=== PATIENT | male | born 1940 | race Caucasian/White ===

== ENCOUNTER 2017-02-07 19:58 | Inpatient (IN) | payer MEDICARE, OTHER ==
--- OUTSIDE RECORDS SUMMARY | 2017-02-07 20:01 | XMS | Clinical Summary ---
:1940 Author Organization [facility] Address [address] [place] [address] Phone Care Team Providers Name Role Phone , Primary Care Provider Unavailable Allergies No Known Allergies Current Medications Prescription Sig. Disp. Refills Start Date End Date Status simvastatin (ZOCOR) 80 MG Take 80 mg by Active tablet mouth nightly. metoprolol (TOPROL-XL) 25 Take 25 mg by Active MG 24 hr tablet mouth daily. lisinopril Take 2.5 mg by Active (PRINIVIL,ZESTRIL) 2.5 MG mouth daily. tablet clopidogrel (PLAVIX) 75 mg Take 75 mg by Active tablet mouth daily. finasteride (PROSCAR) 5 mg Take 5 mg by Active tablet mouth daily. ezetimibe (ZETIA) 10 mg Take 10 mg by Active tablet mouth daily. niacin 500 MG tablet Take 500 mg by Active mouth daily with breakfast. aspirin 325 MG tablet Take 325 mg by Active mouth daily. multivitamin per tablet Take 1 tablet by Active mouth daily. coenzyme Q10 100 mg capsule Take 100 mg by Active mouth daily. ascorbic acid, vitamin C, Take 1,000 mg by Active (VITAMIN C) 1000 MG tablet mouth daily. cholecalciferol, vitamin Take 1,000 Units Active D3, 1,000 unit capsule by mouth daily. b complex vitamins tablet Take 1 tablet by Active mouth daily. milk thistle 175 mg tablet Take 175 mg by Active mouth daily. omega-3 fatty acids-fish Take 2 g by mouth Active oil 340-1,000 mg Cap per 2 (two) times capsule daily. diphenhydrAMINE (BENADRYL) Take 25 mg by Active 25 mg tablet mouth every night as needed for Sleep. Active Problems Not on file Encounters Date Type Specialty Care Team Description 02/01/2017 - Emergency Emergency Medicine [place], Fever and chills 02/02/2017 Rita Gary MD (Primary Dx);Cancer (HCC);Cough 01/15/2017 Telephone Radiology Leanna Friend RN 01/14/2017 Hospital Encounter Radiology Blayne Royal Malignant neoplasm MD Bharath of prostate ([facility]) 01/14/2017 Scanned Document 01/13/2017 Telephone Radiology Leanna Friend RN 01/07/2017 Hospital Encounter Radiology Blayne Royal Malignant neoplasm MD Bharath of prostate ([facility]) 01/07/2017 Hospital Encounter Radiology Blayne Royal Malignant neoplasm MD Bharath of prostate ([facility]) 01/03/2017 Telephone Radiology Caryn Gilbert RN 01/01/2017 Outside Orders Blayne Royal Malignant neoplasm MD Bharath of prostate ([facility]) (Primary Dx) from Last 3 Months Social History Tobacco Use Types Packs/Day Years Used Date Former Smoker 1 15 Quit: 01/03/1975 Smokeless Tobacco: Former User Quit: 01/03/1975 Tobacco Cessation:Counseling Given: Yes Alcohol Use Drinks/Week oz/Week Comments No Sex Assigned at Date Recorded Not on file Last Filed Vital Signs Vital Sign Reading Time Taken Blood Pressure 124/78 02/02/2017 1:54 AM CDT Pulse 86 02/02/2017 1:54 AM CDT Temperature 37.1 C (98.7 F) 02/02/2017 1:54 AM CDT Respiratory Rate 16 02/02/2017 1:54 AM CDT Oxygen Saturation 100% 02/02/2017 1:54 AM CDT Inhaled Oxygen Concentration - - Weight 87.1 kg (192 lb) 02/01/2017 9:49 PM CDT Height 165.1 cm (5' 5") 02/01/2017 9:49 PM CDT Body Mass Index 31.95 02/01/2017 9:49 PM CDT Plan of Treatment Not on file Results Rapid Influenza A&B Screen (02/01/2017 11:59 PM) Component Value Ref Range Rapid Influenza A Antigen Negative Negative Rapid influenza B Antigen Negative Negative Specimen Performing Laboratory Nasal - Nasopharyngeal Swab [facility] [address] [place] [address] Blood culture (02/01/2017 11:57 PM)Only the most recent of2 resultswithin the time period is included. Component Value Ref Range Result No growth in 5 days Specimen Performing Laboratory Blood - Arm, Right [facility] [address] [place] [address] Procalcitonin (02/01/2017 11:50 PM) Component Value Ref Range Procalcitonin 0.06(H) <0.05 ng/mL Specimen Performing Laboratory [facility] [address] [place] [address] Narrative SEPSIS RISK (ng/mL) Low:0.05-0.50 Intermediate: 0.51-2.00 High: >=2.01 CBC with platelet count + automated diff (02/01/2017 11:50 PM) Component Value Ref Range WBC 9.5 4.0 - 10.0 K/L RBC 3.84(L) 4.20 - 5.80 M/L Hemoglobin 11.2(L) 13.0 - 16.8 GM/DL Hematocrit 33.4(L) 40.0 - 50.0 % MCV 87.0 82.0 - 98.0 fL MCH 29.2 27.0 - 33.0 pg MCHC 33.6 32.0 - 36.0 GM/DL RDW 13.4 12.0 - 15.0 % Platelets 206 150 - 430 K/CU MM MPV 7.5 6.5 - 10.5 fL nRBC 0 0 - 0 /100 WBC % Neutros 79 % % Lymphs 11 % % Monos 7 % % Eos 1 % % Baso 2 % # Neutros 7.50 1.80 - 8.00 K/L # Lymphs 1.00(L) 1.48 - 4.50 K/L # Monos 0.70 0.00 - 1.30 K/L # Eos 0.10 0.00 - 0.50 K/L # Baso 0.20 0.00 - 0.20 K/L Specimen Performing Laboratory [facility] [address] [place] [address] Lactic acid, venous, whole blood (02/01/2017 11:50 PM) Component Value Ref Range Lactate, Venous 0.5 0.5 - 2.2 mmol/L Specimen Performing Laboratory [facility] [address] [place] [address] Narrative Effective 09/11/2015: Units/Reference Range Change New: 0.5-2.2 mmol/LPrevious: 5-20 mg/dL CBC with platelet count + automated diff (02/01/2017 11:50 PM) Specimen Performing Laboratory Blood Narrative The following orders were created for panel order CBC with platelet count + automated diff. Procedure Abnormality Status --------- ------ CBC with platelet count ...[[id number]]AbnormalFinal result Please view results for these tests on the individual orders. Comprehensive metabolic panel (02/01/2017 11:50 PM) Component Value Ref Range Protein, Total 6.6 6.0 - 8.5 gm/dL Albumin 3.8 3.5 - 5.0 g/dL Alkaline Phosphatase 87 30 - 115 U/L Total Bilirubin 0.5 0.1 - 1.3 mg/dL Sodium 135 135 - 148 meq/L Potassium 3.9 3.5 - 5.5 meq/L Chloride 103 98 - 106 meq/L CO2 21 20 - 31 meq/L BUN 27(H) 10 - 26 mg/dL Creatinine 1.70(H) 0.50 - 1.20 mg/dL Glucose 127(H) 70 - 110 mg/dL Calcium 8.8 8.5 - 10.5 mg/dL AST 21 5 - 40 U/L ALT 16 6 - 50 U/L EGFR 39Comment:ESTIMATED GFR IS NOT ACCURATE mL/min/1.73 sq m CREATININE CLEARANCE IN PREDICTING GLOMERULAR FILTRATION RATE. ESTIMATED GFR IS NOT APPLICABLE FOR DIALYSIS PATIENTS. Specimen Performing Laboratory Blood [facility] [address] [place] [address] XR chest 2 views (02/01/2017 11:31 PM)Only the most recent of2 resultswithin the time period is included. Specimen Performing Laboratory [facility] Narrative FINAL REPORT Chest, PA and lateral. History: Fever, cough. Comparison: 01/14/2017. IMPRESSION: The heart is within normal limits of size. A right chest port is in place with the distal tip terminating at the cavoatrial junction. No focal consolidation, sizable pleural effusion, or pneumothorax. Right basilar atelectasis is present. Signed: Kevin Thomas MD Report Verified Date/Time:02/01/2017 23:35:25 Reading Location: [facility] B1 [id number] Consult Reading Room Procedure Note Interface, External Ris In - 02/01/2017 11:37 PM CDT FINAL REPORT Chest, PA and lateral. History: Fever, cough. Comparison: 01/14/2017. IMPRESSION: The heart is within normal limits of size. A right chest port is in place with the distal tip terminating at the cavoatrial junction. No focal consolidation, sizable pleural effusion, or pneumothorax. Right basilar atelectasis is present. Signed: Kevin Thomas MD Report Verified Date/Time: 02/01/2017 23:35:25 Reading Location: [facility] C013 Consult Reading Room Urinalysis w/Microscopic + Reflex to Culture - Clear Catch (02/01/2017 11:26 PM) Component Value Ref Range Color, UA Yellow Clarity, UA Clear Specific [place], UA 1.008 1.001 - 1.035 pH, UA 6.0 5.0 - 8.0 Protein, UA Negative Negative Glucose, UA 50 mg/dL(A) Negative Ketones, UA Negative Negative Bilirubin, UA Negative Negative Blood, UA Negative Negative Nitrite, UA Negative Negative Leukocytes, UA Negative Negative Urobilinogen, UA <1.0 0.2 - 1.0 mg/dL RBC, UA 0 /HPF WBC, UA <1 /HPF Mucus Rare Specimen Source Specimen Performing Laboratory Urine - Urine, Clean Catch [facility] [address] [place] [address] IR Port-a-Cath Placement (01/14/2017 10:36 AM) Specimen Performing Laboratory [facility] Narrative FINAL REPORT Ps).07 Exam: Chest port insertion Clinical History: Prostate cancer Consent: Benefits and risks were explained to the patient who gave consent to the procedure. Complication: None immediate. Sedation: The procedure was performed with conscious sedation. Continuous cardiorespiratory monitoring was performed by a registered nurse throughout the procedure.The total sedation time was 26 minutes. Total fluoro time:0.2 minutes Total images 1 Medication: Versed 2 mg IV, fentanyl 100 mcg IV, Ancef 1 gram IV Procedure: Sterile barrier technique was followed including cap, mask, sterile gown, sterile gloves, sterile sheet, hand hygiene and 2% chlorhexidine for cutaneous antisepsis.The right chest and neck were prepped and draped in usual sterile fashion. 2% lidocaine was used as local anesthetic. The right internal jugular vein, which was patent, was accessed under ultrasound guidance.A hardcopy of the ultrasound image was obtained.Linear incision was made in the right upper chest followed by creation of a subcutaneous pocket. It was irrigated with antibiotic solution. A subcutaneous tunnel was created by blunt dissection. The chest port catheter was pass through the subcutaneous tunnel and advanced under fluoroscopic guidance to the caval atrial junction. It was cut to appropriate length and connected to the reservoir. The reservoir was placed within the subcutaneous pocket and anchored with 2-0 Prolene.It flushed and aspirated easily and was heparinized. The incision was closed using 3-0 Vicryl in subcuticular fashion. The patient tolerated the procedure well without any adverse reactions. She left the department in stable condition. Impression: Right internal jugular power injectable chest port insertion as described. An access needle was left within the reservoir for immediate access per request by the ordering service. The tip of the catheterterminates at the cavoatrial junction. Signed: Alex Merchant MD Report Verified Date/Time:01/14/2017 17:52:51 Reading Location: [facility] Radiology Reading Room Procedure Note Interface, External Ris In - 01/14/2017 5:54 PM CDT FINAL REPORT Ps).07 Exam: Chest port insertion Clinical History: Prostate cancer Consent: Benefits and risks were explained to the patient who gave consent to the procedure. Complication: None immediate. Sedation: The procedure was performed with conscious sedation. Continuous cardiorespiratory monitoring was performed by a registered nurse throughout the procedure. The total sedation time was 26 minutes. Total fluoro time: 0.2 minutes Total images 1 Medication: Versed 2 mg IV, fentanyl 100 mcg IV, Ancef 1 gram IV Procedure: Sterile barrier technique was followed including cap, mask, sterile gown, sterile gloves, sterile sheet, hand hygiene and 2% chlorhexidine for cutaneous antisepsis. The right chest and neck were prepped and draped in usual sterile fashion. 2% lidocaine was used as local anesthetic. The right internal jugular vein, which was patent, was accessed under ultrasound guidance. A hardcopy of the ultrasound image was obtained. Linear incision was made in the right upper chest followed by creation of a subcutaneous pocket. It was irrigated with antibiotic solution. A subcutaneous tunnel was created by blunt dissection. The chest port catheter was pass through the subcutaneous tunnel and advanced under fluoroscopic guidance to the caval atrial junction. It was cut to appropriate length and connected to the reservoir. The reservoir was placed within the subcutaneous pocket and anchored with 2-0 Prolene. It flushed and aspirated easily and was heparinized. The incision was closed using 3-0 Vicryl in subcuticular fashion. The patient tolerated the procedure well without any adverse reactions. She left the department in stable condition. Impression: Right internal jugular power injectable chest port insertion as described. An access needle was left within the reservoir for immediate access per request by the ordering service. The tip of the catheter terminates at the cavoatrial junction. Signed: Alex Merchant MD Report Verified Date/Time: 01/14/2017 17:52:51 Reading Location: [facility] Radiology Reading Room /aPTT (01/14/2017 8:35 AM) Component Value Ref Range Protime 14.1 11.8 - 14.4 seconds INR 1.1(L) 1.2 - 1.5 PTT 31.4 23.2 - 36.1 seconds Specimen Performing Laboratory Blood - Arm, [facility] [address] [place] [address] Narrative RECOMMENDED COUMADIN/WARFARIN INR THERAPY RANGES STANDARD DOSE: 2.0 - 3.0 Includes: PROPHYLAXIS for venous thrombosis, systemic embolization; TREATMENT for venous thrombosis and/or pulmonary embolus. HIGH RISK: Target INR is 2.5-3.5 for patients with mechanical heart valves. Platelet count (01/14/2017 8:35 AM) Component Value Ref Range Platelets 118(L) 150 - 430 K/CU MM Specimen Performing Laboratory Blood - Arm, [facility] [address] [place] [address] CT chest without IV contrast (01/07/2017 5:30 PM) Specimen Performing Laboratory [facility] Narrative FINAL REPORT CT, CHEST, WITHOUT CONTRAST, CT, ABDOMEN \\T\\ PELVIS, WITHOUT IV CONTRAST INDICATION: Malignant neoplasm of prostate COMPARISON: None TECHNIQUE: Noncontrast chest, abdomen and pelvis CT.Coronal and sagittal reformatted images obtained. Oral contrast was administered. DOSE REDUCTION: Dose modulation, iterative reconstruction, and/or weight-based adjustment of the mA/kV was utilized to reduce the radiation dose to as low as reasonably achievable. NOTE:Absence of intravenous contrast decreases sensitivity for focal lesions and vascular pathology. FINDINGS: Chest: Lungs and pleura: No focal airspace disease. 6 mm pulmonary nodule in the right upper lobe medially. 7 mm nodule near the right cardiophrenic angle. No effusion or pneumothorax. Central airways: Patent. Adenopathy: None. Heart and pericardium: Normal cardiac size. Calcified coronary artery disease is present. Great vessels: Normal calibers. Regional skeleton: No acute abnormalities. Abdomen/Pelvis: Liver: Low-attenuation 13 mm cystic lesion in the right lobe. Perihepatic versus subhepatic fluid collection measures 3.3 x 5.7 cm. Gallbladder and biliary tree: No ductal dilation or stones. Pancreas: No acute findings. Spleen: No acute findings Adrenal Glands: No acute findings. Kidneys and ureters: No obstructing stone. Prior nephrectomy on the right. Exophytic cystic changes on the left. The largest arising from the interpolar region measures 3.5 cm transverse. Bladder and reproductive organs: Unremarkable urinary bladder. Prostate size is within normal limits. Radiotherapy seeds are present. Stomach and Duodenum: No significant findings. Small and large intestine: Normal calibers. No bowel wall thickening. Distal diverticular disease without associated inflammatory signs. Appendix: Normal. Major vascular structures: Normal aortic caliber. Peritoneum and retroperitoneum: No peritoneal, retroperitoneal or iliac chain adenopathy. Skeleton: No blastic or lytic osseous lesions. Modic changes noted at multiple lumbar endplates. Additional findings: None. IMPRESSION: Limited noncontrast evaluation. Small volume perihepatic fluid may represent hemorrhage from recent intervention/bypass. Correlation recommended. Prior right nephrectomy. Normal prostate size with radiotherapy seeds. Pulmonary nodules, the larger of which measures 7 mm. The Fleischner Society guidelines for followup of an incidentally detected 6 to 8 mm pulmonary nodule are as follows:LOW RISK patient (minimal or absent history of smoking and other known risk factors): follow-up CT in 16-12 months; then consider follow-up at 18-24 months. HIGH RISK patient (history of smoking or other risk factors):follow-up CT at 6-12 months, then again at 18-24 months if no change. Signed: JR Blount Robert MD Report Verified Date/Time:01/07/2017 20:41:11 Reading Location: [address] Reading Room Procedure Note Interface, External Ris In - 01/07/2017 8:43 PM CDT FINAL REPORT CT, CHEST, WITHOUT CONTRAST, CT, ABDOMEN \\T\\ PELVIS, WITHOUT IV CONTRAST INDICATION: Malignant neoplasm of prostate COMPARISON: None TECHNIQUE: Noncontrast chest, abdomen and pelvis CT. Coronal and sagittal reformatted images obtained. Oral contrast was administered. DOSE REDUCTION: Dose modulation, iterative reconstruction, and/or weight-based adjustment of the mA/kV was utilized to reduce the radiation dose to as low as reasonably achievable. NOTE: Absence of intravenous contrast decreases sensitivity for focal lesions and vascular pathology. FINDINGS: Chest: Lungs and pleura: No focal airspace disease. 6 mm pulmonary nodule in the right upper lobe medially. 7 mm nodule near the right cardiophrenic angle. No effusion or pneumothorax. Central airways: Patent. Adenopathy: None. Heart and pericardium: Normal cardiac size. Calcified coronary artery disease is present. Great vessels: Normal calibers. Regional skeleton: No acute abnormalities. Abdomen/Pelvis: Liver: Low-attenuation 13 mm cystic lesion in the right lobe. Perihepatic versus subhepatic fluid collection measures 3.3 x 5.7 cm. Gallbladder and biliary tree: No ductal dilation or stones. Pancreas: No acute findings. Spleen: No acute findings Adrenal Glands: No acute findings. Kidneys and ureters: No obstructing stone. Prior nephrectomy on the right. Exophytic cystic changes on the left. The largest arising from the interpolar region measures 3.5 cm transverse. Bladder and reproductive organs: Unremarkable urinary bladder. Prostate size is within normal limits. Radiotherapy seeds are present. Stomach and Duodenum: No significant findings. Small and large intestine: Normal calibers. No bowel wall thickening. Distal diverticular disease without associated inflammatory signs. Appendix: Normal. Major vascular structures: Normal aortic caliber. Peritoneum and retroperitoneum: No peritoneal, retroperitoneal or iliac chain adenopathy. Skeleton: No blastic or lytic osseous lesions. Modic changes noted at multiple lumbar endplates. Additional findings: None. IMPRESSION: Limited noncontrast evaluation. Small volume perihepatic fluid may represent hemorrhage from recent intervention/bypass. Correlation recommended. Prior right nephrectomy. Normal prostate size with radiotherapy seeds. Pulmonary nodules, the larger of which measures 7 mm. The Fleischner Society guidelines for followup of an incidentally detected 6 to 8 mm pulmonary nodule are as follows: LOW RISK patient (minimal or absent history of smoking and other known risk factors): follow-up CT in 16-12 months; then consider follow-up at 18-24 months. HIGH RISK patient (history of smoking or other risk factors):follow-up CT at 6-12 months, then again at 18-24 months if no change. Signed: JR Blount Robert MD Report Verified Date/Time: 01/07/2017 20:41:11 Reading Location: [address] Reading Room abdomen/pelvis without iv contrast (01/07/2017 5:30 PM) Specimen Performing Laboratory [facility] Narrative FINAL REPORT CT, CHEST, WITHOUT CONTRAST, CT, ABDOMEN \\T\\ PELVIS, WITHOUT IV CONTRAST INDICATION: Malignant neoplasm of prostate COMPARISON: None TECHNIQUE: Noncontrast chest, abdomen and pelvis CT.Coronal and sagittal reformatted images obtained. Oral contrast was administered. DOSE REDUCTION: Dose modulation, iterative reconstruction, and/or weight-based adjustment of the mA/kV was utilized to reduce the radiation dose to as low as reasonably achievable. NOTE:Absence of intravenous contrast decreases sensitivity for focal lesions and vascular pathology. FINDINGS: Chest: Lungs and pleura: No focal airspace disease. 6 mm pulmonary nodule in the right upper lobe medially. 7 mm nodule near the right cardiophrenic angle. No effusion or pneumothorax. Central airways: Patent. Adenopathy: None. Heart and pericardium: Normal cardiac size. Calcified coronary artery disease is present. Great vessels: Normal calibers. Regional skeleton: No acute abnormalities. Abdomen/Pelvis: Liver: Low-attenuation 13 mm cystic lesion in the right lobe. Perihepatic versus subhepatic fluid collection measures 3.3 x 5.7 cm. Gallbladder and biliary tree: No ductal dilation or stones. Pancreas: No acute findings. Spleen: No acute findings Adrenal Glands: No acute findings. Kidneys and ureters: No obstructing stone. Prior nephrectomy on the right. Exophytic cystic changes on the left. The largest arising from the interpolar region measures 3.5 cm transverse. Bladder and reproductive organs: Unremarkable urinary bladder. Prostate size is within normal limits. Radiotherapy seeds are present. Stomach and Duodenum: No significant findings. Small and large intestine: Normal calibers. No bowel wall thickening. Distal diverticular disease without associated inflammatory signs. Appendix: Normal. Major vascular structures: Normal aortic caliber. Peritoneum and retroperitoneum: No peritoneal, retroperitoneal or iliac chain adenopathy. Skeleton: No blastic or lytic osseous lesions. Modic changes noted at multiple lumbar endplates. Additional findings: None. IMPRESSION: Limited noncontrast evaluation. Small volume perihepatic fluid may represent hemorrhage from recent intervention/bypass. Correlation recommended. Prior right nephrectomy. Normal prostate size with radiotherapy seeds. Pulmonary nodules, the larger of which measures 7 mm. The Fleischner Society guidelines for followup of an incidentally detected 6 to 8 mm pulmonary nodule are as follows:LOW RISK patient (minimal or absent history of smoking and other known risk factors): follow-up CT in 16-12 months; then consider follow-up at 18-24 months. HIGH RISK patient (history of smoking or other risk factors):follow-up CT at 6-12 months, then again at 18-24 months if no change. Signed: JR Blount Robert MD Report Verified Date/Time:01/07/2017 20:41:11 Reading Location: [address] Reading Room Procedure Note Interface, External Ris In - 01/07/2017 8:43 PM CDT FINAL REPORT CT, CHEST, WITHOUT CONTRAST, CT, ABDOMEN \\T\\ PELVIS, WITHOUT IV CONTRAST INDICATION: Malignant neoplasm of prostate COMPARISON: None TECHNIQUE: Noncontrast chest, abdomen and pelvis CT. Coronal and sagittal reformatted images obtained. Oral contrast was administered. DOSE REDUCTION: Dose modulation, iterative reconstruction, and/or weight-based adjustment of the mA/kV was utilized to reduce the radiation dose to as low as reasonably achievable. NOTE: Absence of intravenous contrast decreases sensitivity for focal lesions and vascular pathology. FINDINGS: Chest: Lungs and pleura: No focal airspace disease. 6 mm pulmonary nodule in the right upper lobe medially. 7 mm nodule near the right cardiophrenic angle. No effusion or pneumothorax. Central airways: Patent. Adenopathy: None. Heart and pericardium: Normal cardiac size. Calcified coronary artery disease is present. Great vessels: Normal calibers. Regional skeleton: No acute abnormalities. Abdomen/Pelvis: Liver: Low-attenuation 13 mm cystic lesion in the right lobe. Perihepatic versus subhepatic fluid collection measures 3.3 x 5.7 cm. Gallbladder and biliary tree: No ductal dilation or stones. Pancreas: No acute findings. Spleen: No acute findings Adrenal Glands: No acute findings. Kidneys and ureters: No obstructing stone. Prior nephrectomy on the right. Exophytic cystic changes on the left. The largest arising from the interpolar region measures 3.5 cm transverse. Bladder and reproductive organs: Unremarkable urinary bladder. Prostate size is within normal limits. Radiotherapy seeds are present. Stomach and Duodenum: No significant findings. Small and large intestine: Normal calibers. No bowel wall thickening. Distal diverticular disease without associated inflammatory signs. Appendix: Normal. Major vascular structures: Normal aortic caliber. Peritoneum and retroperitoneum: No peritoneal, retroperitoneal or iliac chain adenopathy. Skeleton: No blastic or lytic osseous lesions. Modic changes noted at multiple lumbar endplates. Additional findings: None. IMPRESSION: Limited noncontrast evaluation. Small volume perihepatic fluid may represent hemorrhage from recent intervention/bypass. Correlation recommended. Prior right nephrectomy. Normal prostate size with radiotherapy seeds. Pulmonary nodules, the larger of which measures 7 mm. The Fleischner Society guidelines for followup of an incidentally detected 6 to 8 mm pulmonary nodule are as follows: LOW RISK patient (minimal or absent history of smoking and other known risk factors): follow-up CT in 16-12 months; then consider follow-up at 18-24 months. HIGH RISK patient (history of smoking or other risk factors):follow-up CT at 6-12 months, then again at 18-24 months if no change. Signed: JR Mine, Farheen LOVELL Report Verified Date/Time: 01/07/2017 20:41:11 Reading Location: [address] Reading Room -Creatinine (01/07/2017 5:05 PM) Component Value Ref Range POC-Creatinine 1.7(H)Comment:TESTED AT [facility] [address] [facility] 0.6 - 1.3 mg/dL [facility] [address] POC-EGFR 39 mL/min/1.73M2 Specimen Performing Laboratory Blood [facility] [address] [place] [address] from Last 3 Months
[2017-02-07 20:36] LABS: #Eosinphils 0.3 thou/uL (0.0-0.7); #Lymphocytes 0.8 thou/uL (1.20-3.40); #Monocytes 0.7 thou/uL (0.11-0.59); #Neutrophils 5.9 thou/uL (1.40-6.50); %Basophils 0.5 % (0.0-1.0); %Lymphocytes 10.8 % (21.0-51.0); %Monocytes 8.5 % (0.0-10.0); Hematocrit 30.6 % (42.0-52.0); Mean Platelet Volume 7.2 fL (7.4-10.4); Red Blood Cell (RBC) Count 3.55 mill/uL (4.70-6.10); White Blood Cell (WBC) Count 7.7 thou/uL (4.8-10.8)
[2017-02-07] MEDS ORDERED: Acetaminophen 500 MG TAB ONE (20:40)
[2017-02-07 20:42] LABS: PTT 31.6 SEC (22.9-36.1); Prothrombin Time 15.5 SEC (12.0-14.7)
[2017-02-07] MEDS ORDERED: Sodium Chloride 0.9% 100 ML ONE (20:45)
[2017-02-07 20:52] LABS: Lactic Acid - Sepsis 0.5 mmol/L (0.5-2.2)
[2017-02-07 21:01] LABS: Troponin I Less than 0.010 ng/mL (< 0.028)
[2017-02-07 21:04] LABS: ALT (SGPT) 17 U/L (8-55); AST (SGOT) 24 U/L (5-34); Alkaline Phosphatase 84 U/L (40-150); Anion Gap 11 mmol/L (10-20); BUN (Urea Nitrogen) 20 mg/dL (8.4-25.7); Bilirubin, Total 0.4 mg/dL (0.2-1.2); CK (CPK) 126 U/L (30-200); Calc. Creatinine Clearance 0 mL/min (70-130); Calcium 8.6 mg/dL (7.8-10.44); Carbon Dioxide 25 mmol/L (23-31); Chloride 101 mmol/L (98-107); Estimated GFR-MDRD 42; Globulin 3.1 g/dL (2.4-3.5); Lipase 45 U/L (8-78); Protein, Total 6.6 g/dL (5.8-8.1)
[2017-02-07 21:13] LABS: Bilirubin Negative (Negative); Blood, Urine Large (Negative); Glucose, Urine (Dipstick) Negative (Negative); Ketone, Urine Negative (Negative); Nitrite Negative (Negative); Protein, Urine (Dipstick) Trace mg/dL (Neg-Trace); Urobilinogen 0.2 mg/dL (0.2-1.0)
[2017-02-07 21:15] LABS: Bacteria/HPF None Seen HPF (None Seen); Hyaline Casts/LPF 0-3 HYALINE CAST LPF (0-3 Hyaline); RBC/HPF 21-50 HPF (0-3); Squamous Epithelial None Seen HPF (0-3); WBC/HPF 0-3 HPF (0-3)
--- NOTE | 2017-02-07 22:07 | RAD ---
ONE VIEW CHEST: Comparison: 01-17-17 History: Fever. Sepsis. Patient is undergoing chemotherapy. FINDINGS: Stable right Mediport catheter. Normal cardiac silhouette. The pulmonary vessels and hilum are sandrine l. Costophrenic angles are clear. Chronic interstitial changes. No consolidation or mass. No pneumot horax. No osseous abnormalities. IMPRESSION: No acute cardiopulmonary process. POS: [facility]
[2017-02-07] MEDS ORDERED: Acetaminophen 325 MG TAB PO PRN (22:13)
[2017-02-07] MEDS ORDERED: Cefepime 2 GM in Sodium Chloride 0.9% 100 ML IVPB SCH (23:00)
[2017-02-07 23:16] VITALS: BMI 31.1
--- NOTE | 2017-02-07 23:26 | HP ---
PRIMARY CARE PHYSICIAN: Rell Soriano M.D. CHIEF COMPLAINT: Fever. HISTORY OF PRESENT ILLNESS: Mr. Sahni is a pleasant 76-year-old gentleman who was seen at [facility] on 02/07/2017. He has a history of renal cancer. He is receiving chemotherapy at [facility]. His last chemothera py was 2 days ago. He has been advised to go to the emergency room whenever he has fever. He was admitted at [facility] for fevers from 01/17/2017 to 01/18/2017. At that time, it was determined that the likely caus e of fever was not infection. He was discharged home with levofloxacin. He developed hives with le vofloxacin. He reports ongoing fevers whenever he is receiving chemotherapy. He also reports that there was a week when his chemotherapy was kept. He did not have any fevers during that period. He reports cough, which appears to be chronic. He developed a temperature of 103.6 degrees Fahrenhe it on 01/20/2017. Today, he also noticed some blood in the urine. Therefore, he came to the emerge ncy room. He reports that his cough is productive of clear sputum. REVIEW OF SYSTEMS: The following complete review of systems was negative, unless otherwise mentione d in the HPI or below: Constitutional: Weight loss or gain, sense of well-being, ability to conduct usual activities, exer cise tolerance. Skin/Breast: Rash, itching, changes in hair growth or loss, nail changes, breast lumps, tenderness, swelling, nipple discharge. Eyes: Vision, double vision, tearing, blind spots, pain. ENT/Mouth: Headaches (location, time of onset, duration, precipitating factors), vertigo, lighthead edness, injury. Vision, double vision, tearing, blind spots, pain, nose bleeding, colds, obstruction , discharge, dental difficulties, gingival bleeding, dentures, neck stiffness, pain, tenderness, mas ses in thyroid or other areas. Cardiovascular: Precordial pain, substernal distress, palpitations, syncope, dyspnea on exertion, o rthopnea, nocturnal paroxysmal dyspnea, edema, cyanosis, hypertension, heart murmurs, varicosities, phlebitis, claudication. Respiratory: Pain, shortness of breath, wheezing, stridor, cough, hemoptysis, fever or night sweats . Gastrointestinal: Poor appetite, dysphagia, indigestion, abdominal pain, heartburn, eructation, chase sea, vomiting, hematemesis, jaundice, constipation, or diarrhea, abnormal stools (addison-colored, juan c y, bloody, greasy, foul smelling), flatulence, hemorrhoids, recent changes in bowel habits. Genitourinary: Urgency, frequency, dysuria, nocturia, hematuria, polyuria, oliguria, unusual (or ch true in) color of urine, stones, hesitancy, change in size of stream, dribbling, acute retention or incontinence, libido, potency. Musculoskeletal: Pain, swelling, redness or heat of muscles or joints, limitation, of motion, muscu lar weakness, atrophy, cramps. Neurologic/Psychiatric: Convulsions, paralyses, tremor, incoordination, paresthesias, difficulties with memory of speech, sensory or motor disturbances, or muscular coordination (ataxia, tremor), emo tional problems, anxiety, depression, previous psychiatric care, unusual perceptions, hallucinations . Allergy/Immunologic: Skin rash, anemia, bleeding tendency, polydipsia, polyuria, intolerance to hea t or cold. PAST MEDICAL HISTORY: Significant for coronary artery disease, hypertension, dyslipidemia, prostate cancer, renal cell cancer. PAST SURGICAL HISTORY: Significant for right nephrectomy and port placement. SOCIAL HISTORY: The patient denies tobacco use, alcohol use and recreational drug use. FAMILY HISTORY: Significant for breast cancer in his sister. ALLERGIES: LEVOFLOXACIN, which causes hives. HOME MEDICATIONS: Torisel once weekly, leuprolide subcutaneously, Plavix 75 mg daily, lisinopril 2. 5 mg daily, simvastatin 80 mg daily, finasteride 5 mg daily, aspirin 325 mg daily, niacin 1500 mg da oscar, resveratrol 500 mg daily, metoprolol 12.5 mg 2 times a day, Zetia 10 mg daily, glucosamine, mul tivitamins, vitamin D3 of 2000 units daily, vitamin B complex 1 capsule daily and naproxen 220 mg da oscar. PHYSICAL EXAMINATION: GENERAL: On examination, Mr. Sahni is awake and alert, not in acute distress. VITAL SIGNS: Blood pressure is 120/63, pulse is 72, he is breathing at rate of 24 and saturating 99 % on room air. His temperature is currently 99 degrees Fahrenheit, was 101.7 degrees Fahrenheit at 1959 hours today. EYES: No scleral icterus. No conjunctival pallor. ENT: Moist mucosal membranes, no oropharyngeal erythema or exudates. NECK: Supple, nontender, normal range of movement, trachea is midline. RESPIRATORY: Accessory muscles of breathing are not active. Chest wall movements are symmetric carlo aterally. LUNGS: Clear to auscultation without wheeze, rhonchi or crepitations. CARDIOVASCULAR: S1 and S2 are heard, regular. Peripheral pulses palpable. No carotid bruit, no pe ricardial rub. ABDOMEN: Soft, nontender, bowel sounds are heard, no hepatomegaly, no splenomegaly. SKIN: No rashes or subcutaneous nodules. NEUROLOGIC: Cranial nerves II-XII are intact. Deep tendon reflexes are 2+. MUSCULOSKELETAL: Power is 5/5 in all 4 extremities, normal range of movement at all major extremity joints. PSYCHIATRIC: Normal mood, normal affect, patient is oriented to time, place, and person. LABORATORY DATA: Mr. Sahni's labs and investigations were reviewed. I reviewed his electrocardiogra m, which showed normal sinus rhythm, no ST changes to suggest an acute coronary syndrome. I also re viewed his chest x-ray, which does not show any pulmonary infiltrates. He has a normal white count of 7700, elevated neutrophil percentage of 76.2%, normocytic anemia with hemoglobin of 11, normal pl atelet count, INR 1.2, hyponatremia with sodium of 133, elevated creatinine of 1.62, which is around his baseline, normal lactic acid, normal troponin I, slightly elevated BNP of 130.1 and urinalysis that is positive for blood. ASSESSMENT AND PLAN: Mr. Sahni is a pleasant 76-year-old gentleman, who was seen at [facility]. His problem list includes: 1. Sepsis: Mr. Sahni's presentation meets the criteria for systemic inflammatory response syndrome and sepsis, with suspected source of infection in the respiratory tract, given his history of cough that is productive of sputum. He will be admitted to the hospital and continued on vancomycin and c efepime, which has already received. However, it is unclear whether Mr. Sahni has any infection or w hether his symptoms are from chemotherapy or his cancer. I will request Oncology Service opinion re garding this. If it is deemed not to be from an infection, he may be able to go home in a day or so after being stepped down to oral antibiotics. The patient's has also indicated that they will contact MD Armendariz for further guidance. 2. Hyponatremia, mild, rechecked. 3. Coronary artery disease: Continue home medications including aspirin and Plavix. 4. Hypertension: Continue home medications, monitor vital signs and titrate antihypertensives as n eeded. 5. Dyslipidemia: Continue statin. 6. Prostate cancer: Continued leuprolide and finasteride. 7. Deep venous thrombosis prophylaxis with heparin. 8. Code status was discussed. He is FULL CODE. Many thanks for allowing me to participate in your patient's care. Please feel free to contact me w ith any questions or concerns. LEVEL OF RISK: High. LEVEL OF COMPLEXITY: High.
[2017-02-08] MEDS ORDERED: diphenhydrAMINE HCl 25 MG CAP PO SCH (00:30)
[2017-02-08 04:23] LABS: #Eosinphils 0.3 thou/uL (0.0-0.7); #Lymphocytes 0.4 thou/uL (1.20-3.40); #Monocytes 0.2 thou/uL (0.11-0.59); #Neutrophils 2.8 thou/uL (1.40-6.50); %Basophils 0.5 % (0.0-1.0); %Eosinophils 7.7 % (0.0-10.0); %Lymphocytes 11.8 % (21.0-51.0); %Monocytes 4.6 % (0.0-10.0); Hematocrit 32.1 % (42.0-52.0); Mean Platelet Volume 7.1 fL (7.4-10.4); Red Blood Cell (RBC) Count 3.68 mill/uL (4.70-6.10); White Blood Cell (WBC) Count 3.7 thou/uL (4.8-10.8)
[2017-02-08 04:38] LABS: Anion Gap 13 mmol/L (10-20); BUN (Urea Nitrogen) 20 mg/dL (8.4-25.7); Calc. Creatinine Clearance 49 mL/min (70-130); Calcium 8.1 mg/dL (7.8-10.44); Carbon Dioxide 20 mmol/L (23-31); Chloride 110 mmol/L (98-107); Estimated GFR-MDRD 45
[2017-02-08] MEDS ORDERED: [UNRECOGNIZED DRUG - OTHER] IVPB SCH (06:15)
[2017-02-08 07:40] VITALS: BP 118/59
[2017-02-08] MEDS ORDERED: Heparin 5,000 UNITS/ML VIAL SC SCH (09:00)
[2017-02-08] MEDS ORDERED: Niacin 500 MG TAB PO SCH ×4 (09:00)
[2017-02-08] MEDS ORDERED: Multivitamin W/ Minerals 1 TAB PO SCH (09:00)
[2017-02-08] MEDS ORDERED: FLU VACC TS2017-18 (>65YR) 0.5 ML SYRINGE IM ONE (09:00)
[2017-02-08] MEDS ORDERED: Lisinopril 2.5 MG TAB PO SCH (09:00)
[2017-02-08] MEDS ORDERED: Finasteride 5 MG TAB PO SCH (09:00)
[2017-02-08] MEDS ORDERED: Enoxaparin Sodium 40 MG/0.4 ML SYRINGE SC SCH (09:00)
[2017-02-08] MEDS ORDERED: Vancomycin HCl 1 GM in Premix Bag 1 BAG IVPB SCH (09:00)
[2017-02-08] MEDS ORDERED: Aspirin 325 MG TAB PO SCH (09:00)
[2017-02-08] MEDS ORDERED: Clopidogrel Bisulfate 75 MG TAB PO SCH (09:00)
--- NOTE | 2017-02-08 10:29 | CON ---
DATE OF CONSULTATION: 02/08/2017 REASON FOR CONSULTATION: Renal cell carcinoma. HISTORY OF PRESENT ILLNESS: Mr. Sahni is a pleasant 76-year-old gentleman who was diagnosed with prostate cancer and renal cell carcinoma earlier this year. His prostate cancer is been treated with Lupron. He is currently on temsirolimus IV weekly for renal cell carcinoma. Since the beginning of treatment with this medication he has had a fever as high as 103 and a chronic cough. It seems to get worse a couple of days after treatment and then it will ease up; however, his low grade fever has waxed and waned throughout this entire time. He has had 4 treatments of chemo and has been to the emergency room 3 times with admission x2. He has discussed this with his primary oncologists at [facility], who agrees that it is likely drug related. Over the weekend, his fever increased to as high as 103. He had a cough with clear drainage. He presented to the [place] ER and was admitted here for sepsis. CBC on admission shows an ANC of 5.9, his white count was 7.7. He had 76% neutrophils. His urine was negative. He was started on empiric antibiotics. PAST MEDICAL HISTORY: 1. Prostate cancer. 2. Renal cell carcinoma 3. Coronary artery disease. 4. Hypertension. 5. Dyslipidemia. PAST SURGICAL HISTORY: 1. Right nephrectomy. 2. MediPort placement. ALLERGIES: LEVOFLOXACIN. HOME MEDICATIONS: 1. Aspirin 325 daily. 2. Plavix 75 mg daily. 3. Zetia 10 mg daily. 4. Finasteride 5 mg daily. 5. Lisinopril 2.5 mg daily. 6. Toprol XL 12.5 mg b.i.d. 7. Niacin daily. 8. Simvastatin 80 mg daily. FAMILY HISTORY: Significant for breast cancer in a sister. SOCIAL HISTORY: , lives with his spouse. No alcohol, tobacco or illicit drug use. REVIEW OF SYSTEMS: CONSTITUTIONAL: Positive for fever and chills, no night sweats or weight loss. EYES: No blurred or double vision. ENT: No pain, hoarseness, sore throat, or dysphagia. CARDIOVASCULAR: No chest pain, palpitations or syncope. RESPIRATORY: No shortness of breath, dyspnea on exertion or orthopnea. Positive for cough. GASTROINTESTINAL: No nausea, vomiting, diarrhea, constipation or abdominal pain. GENITOURINARY: No dysuria or hematuria. MUSCULOSKELETAL: No joint or back pain. SKIN: No rash or pruritus. HEMATOLOGIC: No bleeding, bruising or clotting. NEUROLOGIC: No weakness, headache, numbness, tingling or seizure activity. PSYCHIATRIC: No anxiety or depression. PHYSICAL EXAMINATION: VITAL SIGNS: Temperature is 98.9, pulse is 86, respiratory rate 20, BP is 118/ 59, he is 97% on room air. GENERAL: Well-developed, well-nourished male in no acute distress. HEENT: Normocephalic, atraumatic. Pupils equal and reactive to light. NECK: Supple without JVD or mass. CARDIOVASCULAR: Regular rate and rhythm. LUNGS: Clear to auscultation. ABDOMEN: Soft, nontender, bowel sounds are positive. EXTREMITIES: No clubbing, cyanosis or edema. SKIN: No rash. HEMATOLOGIC: No petechia or purpura. NEUROLOGICAL: Nonfocal. PSYCHIATRIC: The patient is alert and oriented and answers questions appropriately. PERTINENT LABORATORY AND X-RAYS: Current WBCs are 3.7, hemoglobin 10.9, hematocrit 32.1, platelet count 128,000. He has got 75% neutrophils, 12% lymphocytes, PT is 15.5, INR is 1.2, PTT is 31.6. Sodium is 139, potassium 3.8 , chloride 110, CO2 is 20, BUN is 12, creatinine 1.51, calcium is 8.1, total bilirubin 0.4, AST is 24, ALT is 17, alkaline phosphatase is 84. Creatinine kinase is 126. Troponin is negative. BNP is 130.1. Serum total protein 6.6, albumin 3.5, globulin 3.1, lipase is 45. Urine was negative. ASSESSMENT AND PLAN: 1. Renal cell carcinoma on IV chemo, temsirolimus. 2. Fever, likely drug related. 3. Chronic cough with chemo. DISCUSSION: Again this is likely drug-related fever as this is a known side effect of this medication. This patient has discussed this with his oncologist who also has agreed that this is likely drug related yet they still continue to send him to the emergency room. I suggest that he have a face to face meeting with his oncologist and discuss a better plan of care on how to manage these side effects. He feels fine at this time. He denies any complaints at all. He had an episode of blood in his urine. He felt it was from mechanical pressure as he was felt he was going to be incontinent, so he attempted to stop flow until he reached the bathroom. He is not neutropenic. All of his preliminary blood cultures have been negative and he has been afebrile. I recommend that he be discharged home and to follow up with his oncologist in [place] this week prior to his next treatment on Wednesday. Thank you for the consult. TAMIKO
[2017-02-08] MEDS ORDERED: Cefepime 2 GM in Sodium Chloride 0.9% 100 ML IVPB SCH ×2 (11:00→21:00)
[2017-02-08 11:33] VITALS: TEMP 98.7
--- NOTE | 2017-02-08 14:32 | DIS ---
DATE OF ADMISSION: 02/07/2017 DATE OF DISCHARGE: 02/08/2017 DISCHARGE DIAGNOSES: 1. Febrile episode, secondarily to temsirolimus. 2. Renal cell carcinoma, status post chemotherapy with temsirolimus. 3. Chronic kidney disease, stage 3. 4. Hyponatremia, mild, resolved. 5. Bronchitis/cough, likely secondarily to temsirolimus. 6. Coronary artery disease, chronic and stable. 7. Hypertension, stable. CONSULTATIONS: Medical Oncology Service. PERTINENT LABORATORY AND X-RAY FINDINGS: Sodium ranged between 133-139. Creatinine ranged between 1.51-1.62 with estimated GFR ranging between 42-45. LFTs within normal limits. Lipase 45. Total C K 126. CBC showed a white blood cell count ranging between 3.7-7.7 and hemoglobin ranged between 10 .9-11.0. Blood cultures x2 from 02/07/2017, showed no growth to date. Influenza A and B antigen da radha 02/07/2017 negative. Portable chest x-ray dated 02/07/2017 showed no acute cardiopulmonary proc ess. HOSPITAL COURSE: Patient was admitted to the medical oncology floor after initially presenting with fever in the context of known active chemotherapy secondary to renal cell carcinoma. The patient w as initially managed for potential SIRS/sepsis with IV antibiotic therapy and IV fluids. The patien t was evaluated by Medical Oncology Service with recommendations to discontinue antibiotic coverage as patient's presentation likely secondarily to ongoing chemotherapy exposure. The patient was give n general supportive measures and overall remained clinically stable throughout the hospital course. Chest imaging was unrevealing and blood cultures remained negative to date. Overall, patient clin ically stable and ready for discharge 02/08/2017. DISCHARGE MEDICATIONS: 1. Aspirin 325 mg 1 tab p.o. daily. 2. Plavix 75 mg 1 tab p.o. daily. 3. Zetia 10 mg 1 tab p.o. at bedtime. 4. Finasteride 5 mg 1 tablet p.o. daily. 5. Lupron 11.25 mg intramuscularly every 3 months. 6. Lisinopril 2.5 mg 1 tab p.o. daily. 7. Toprol-XL 12.5 mg p.o. b.i.d. 8. Multivitamin 1 tab p.o. daily. 9. Niacin 1000 mg p.o. q.a.m. and 500 mg p.o. at bedtime. 10. Simvastatin 80 mg p.o. at bedtime. 11. Temsirolimus 25 mg IV every 7 days. FOLLOWUP: The patient will follow up with his primary care provider, . The patient [facility]. CONDITION ON DISCHARGE: Stable. ACTIVITY: Ad deedee. DIET: Heart healthy. CODE STATUS: FULL. DISPOSITION: Home, 02/08/2017.
[2017-02-08] MEDS ORDERED: Ezetimibe 10 MG TAB PO SCH (21:00)
[2017-02-08] MEDS ORDERED: Atorvastatin Calcium 40 MG TAB PO SCH (21:00)
[2017-02-09] MEDS ORDERED: LEUPROLIDE ACETATE IM SCH (07:00)
== END 2017-02-08 14:14 | disposition home or self-care (01) | DRG 864 ==
LOC: ERS 19:58 → ONC 21:43
PROVIDERS: ADMIT Internal Medicine; ATTEND Internal Medicine
DX: R50.2 Drug induced fever (principal); C64.9 Malignant neoplasm of unspecified kidney, except renal pelvis; E87.1 Hypo-osmolality and hyponatremia; N18.3 Chronic kidney disease, stage 3 (moderate); Z92.21 Personal history of antineoplastic chemotherapy; I25.10 Atherosclerotic heart disease of native coronary artery without angina pectoris; E78.5 Hyperlipidemia, unspecified; Z85.46 Personal history of malignant neoplasm of prostate; Z90.5 Acquired absence of kidney; Z95.828 Presence of other vascular implants and grafts; Z88.1 Allergy status to other antibiotic agents; Z79.01 Long term (current) use of anticoagulants; Z79.82 Long term (current) use of aspirin; T45.1X5A Adverse effect of antineoplastic and immunosuppressive drugs, initial encounter; I12.9 Hypertensive chronic kidney disease with stage 1 through stage 4 chronic kidney disease, or unspecified chronic kidney disease
CPT/HCPCS: 36415; 71010; 80048; 80053; 81003; 81015; 82553; 83605; 83690; 83880; 84484; 85025; 85610; 85730; 87040; 93005; 96365; 96367; J0692; J1644; J3370; J7050

== ENCOUNTER 2019-05-29 09:11 | Outpatient (CLI) | payer MEDICARE, OTHER ==
--- NOTE | 2019-05-29 10:15 | ULT ---
SCROTAL ULTRASOUND INDICATION: Scrotal swelling TECHNIQUE: Grayscale, color Doppler spectral Doppler images were obtained of the scrotum. COMPARISON: None. FINDINGS: Right Testicle: Size: 4.6 x 2.9 x 3.0. Flow: There is normal vascular flow to the right testicle Hydrocele: There is a large right-sided hydrocele Epididymis: The right epididymis appears within normal limits. Left Testicle: Size: 4.1 x 2.5 x 2.0. Flow: There is normal vascular flow to left testicle. Hydrocele: There is a tiny left-sided hydrocele Epididymis: The left epididymis appears within normal limits. Additional findings: There is a striated appearance to the testicles bilaterally. Impression: Bilateral striated appearance to the testicles is nonspecific. This can be seen with neoplasm such a s seminoma, lymphoma or leukemia. This also can be seen in testicular fibrosis and orchitis. Would recommend correlation with the clinical examination and initiation of appropriate antibiotic therapy for possible orchitis. A follow-up ultrasound in one to 2 weeks may be helpful to document resolution or stability. Large right and tiny left hydroceles.
== END 2019-05-29 09:12 | disposition home or self-care (01) ==
LOC: ULT 09:11
PROVIDERS: ATTEND Family Medicine
DX: N50.89 Other specified disorders of the male genital organs (principal); N43.3 Hydrocele, unspecified
CPT/HCPCS: 76870; 93976

== ENCOUNTER 2024-03-01 10:54 | Outpatient (CLI) | payer MEDICARE | END 2024-03-01 10:55 | disposition home or self-care (01) | LOC: RAD 10:54 | PROVIDERS: ATTEND Otolaryngology | DX: I69.891 Dysphagia following other cerebrovascular disease (principal) | CPT/HCPCS: 74230 ==